=== PATIENT | female | born 2000 | race African-American/Black ===

== ENCOUNTER 2024-04-25 15:22 | Emergency (ER) | payer OTHER ==
[2024-04-25] MEDS ORDERED: IBUPROFEN 400 MG TAB ONE (15:59)
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
[2024-04-25 17:50] VITALS: BP 132/74; O2SAT 98
== END 2024-04-25 17:42 | disposition home or self-care (01) ==
LOC: ER 15:22
DX: R07.9 Chest pain, unspecified (principal); V49.40XA Driver injured in collision with unspecified motor vehicles in traffic accident, initial encounter
CPT/HCPCS: 71045; 99283

== ENCOUNTER 2024-04-27 11:27 | Emergency (ER) | payer OTHER ==
[2024-04-27] MEDS ORDERED: KETOROLAC 30 MG/ML INJ ONE (12:51)
[2024-04-27] MEDS ORDERED: DIPHENHYDRAMINE 50 MG/ML VIAL ONE (12:51)
[2024-04-27] MEDS ORDERED: NA CHLORIDE 0.9% 1,000 ML ONE (12:51)
[2024-04-27] MEDS ORDERED: METOCLOPRAMIDE 10 MG/2mL INJ ONE (12:51)
--- NOTE | 2024-04-27 13:47 | RAD REPORT ---
EXAM DESCRIPTION: CT - Head Brain Wo Cont - 04/27/2024 1:28 pm CLINICAL HISTORY: Headache COMPARISON: none TECHNIQUE: Computed axial tomography of the head was obtained. IV contrast was not requested. All CT scans are performed using dose optimization technique as appropriate and may include automated exposure control or mA/KV adjustment according to patient size. FINDINGS: An intracranial bleed is not seen The ventricles are normal in caliber No significant hypodense areas within the brain visualized No extra-axial fluid collection is noted. Fluid within the sinuses/ mastoids is not seen IMPRESSION: No acute intracranial abnormality is seen If patient's symptoms persist MRI of the brain would be recommended
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
[2024-04-27 14:43] VITALS: BP 146/86; TEMP 97.2; O2SAT 100
== END 2024-04-27 14:18 | disposition home or self-care (01) ==
LOC: ER 11:27
DX: R51.9 Headache, unspecified (principal)
CPT/HCPCS: 96361; 70450; 96375; 96374; 99284; J2765; J1200; J7030